=== PATIENT | male | born 1935 | race Caucasian/White ===

== ENCOUNTER 2016-12-15 19:35 | Inpatient (IN) | payer MEDICARE ==
[2016-12-15] VITALS (7 sets, daily range): BP systolic 149–170; BP diastolic 56–83; PULSE 71–99; RESP 18–40; TEMP 96.3–97.5; O2SAT 97–100
[~2016-12-15] VITALS: Ht 177.8 cm; Wt 90.7 kg
[~2016-12-15 19:35] MED LIST: ALLO100T91 PO; AMLO5TAB4 PO; ASPI81TA2 PO; BRI.2% OP; CALC667T5 PO; CARV25TA55 PO; CLOP75TA2 PO; ERGO500043 PO; ETOMIDATE 20 MG/ 10 ML VIAL (AMIDATE) ONE; FOLI-43 PO; INSU100V9 SUBCUT; LIP40 PO; LISI20TA PO; ROCURONIUM BROMIDE 10 MG/ML (ZEMURON) ONE; SEVE800T8 PO; TERA10CA47 PO; VITA1CAP PO; VITA400T9 PO
--- NOTE | 2016-12-15 19:35 | NUR ---
Patient to ER bed 1 to gown for evaluation. Side rails up. Report given to LUTHER PYLE.
--- NOTE | 2016-12-15 19:40 | NUR ---
Pt BIB ALS for acute respiratory distress. Pt on 15L mask, O2 96%, had breathing tx, SOB did not resolve. Pt appeared pale, diaphoretic, accessory muscle noted. Skin intact. 20G IV present at R wrist. Cage Unloader stated BP on the field was 200 systolic.
[2016-12-15] MEDS ORDERED: ETOMIDATE 20 MG/ 10 ML VIAL (AMIDATE) IVP ONE (19:45)
[2016-12-15] MEDS ORDERED: PROPOFOL DRIP 100 ML IV ONE (19:45)
[2016-12-15] MEDS ORDERED: ROCURONIUM BROMIDE 10 MG/ML (ZEMURON) IV ONE (19:45)
--- NOTE | 2016-12-15 19:50 | NUR ---
, , RTs, EMT, Soham RN, Peg RN at bedside for verification using 2 identifiers.
--- NOTE | 2016-12-15 19:58 | NUR ---
Patient not known to be of DNR status. Patient medicated with 20 mg of atomidate and 100mg of rocuronium for sedation prior to placement of ET tube. Respiratory therapy at bedside prior to placement. Size 7.5 ET tube placed by . Cuff inflated with 10 cc air. Auscultation of breath sounds over bilateral chest wall. ET tube secured 23 at the lips. O2 sats 98% pulse ox. PCXR ordered to check tube placement.
[2016-12-15] MEDS ORDERED: FUROSEMIDE 40 MG/4 ML VIAL IVP ONE ×2 (20:00→22:45)
[2016-12-15 20:06] LABS: BASOPHILS % (AUTO) 0.3 % (0.0-2.0); EOSINOPHILS # (AUTO) 0.1 K/uL (0.0-0.4); EOSINOPHILS % (AUTO) 0.5 % (0.0-4.0); HEMATOCRIT 31.3 % (36-54); HEMOGLOBIN 10.1 g/dL (14.0-18.0); LYMPHOCYTES # (AUTO) 1.2 K/uL (1.0-5.5); LYMPHOCYTES % (AUTO) 9.5 % (20.5-51.5); MEAN CORPUSCULAR HEMOGLOBIN 31 pg (27-31); MEAN CORPUSCULAR HGB CONC 32 % (32-36); MEAN CORPUSCULAR VOLUME 94 fL (79.0-98.0); MONOCYTES % (AUTO) 7.6 % (1.7-9.3); NEUTROPHILS # (AUTO) 10.5 K/uL (1.8-7.7); NEUTROPHILS % (AUTO) 82.1 % (40.0-70.0); PLATELET COUNT (AUTO) 159 K/uL (130-430); RED BLOOD CELL COUNT(AUTO) 3.32 MIL/uL (4.2-6.2); RED CELL DISTRIBUTION WIDTH 15.9 % (9.0-15.0); WHITE BLOOD COUNT (AUTO) 12.8 K/uL (4.8-10.8)
[2016-12-15 20:19] LABS: ANION GAP 6 (5-15); CALCIUM 9.6 mg/dL (8.4-11.0); CHLORIDE 98 mmol/L (98-107); GLUCOSE 179 mg/dL (70-99); POTASSIUM 4.6 mmol/L (3.5-5.1); SODIUM SERUM 135 mmol/L (136-145); UREA NITROGEN, BLOOD 58 mg/dL (8-21)
[2016-12-15 20:20] LABS: INR 1.1 (0.80-1.20)
[2016-12-15 20:21] LABS: CREATININE 8.55 mg/dL (0.55-1.30)
[2016-12-15 20:24] LABS: ALANINE AMINOTRANSFERASE 30 U/L (12-78); ALBUMIN 4.1 g/dL (3.4-4.8); ASPARTATE AMINOTRANSFERASE 20 U/L (10-37); TOTAL BILIRUBIN 0.7 mg/dL (0.0-1.0); TOTAL PROTEIN, SERUM 7.7 g/dL (6.4-8.3)
--- NOTE | 2016-12-15 20:32 | NUR ---
Medication reconciliation completed with information provided by [facility]. Any prior medication reconciliation on file was reviewed and corrected.
--- NOTE | 2016-12-15 20:45 | NUR ---
Spoke w/ LASHANDA Pillai from [facility]. Updated her w/ vent settings and current drips
[2016-12-15 20:56] LABS: BLOOD GAS BASE EXCESS 4.1 mmol/L (-3.0-3.0); BLOOD GAS PH 7.525 (7.350-7.450)
[2016-12-15] MEDS ORDERED: cefTRIAXone 1 GM in LIDOCAINE 1%, 20 ML MDV 2.1 ML IM ONE (21:00)
[2016-12-15] MEDS ORDERED: NITROGLYCERIN 1 INCH (GM) OINT. TP ONE (21:00)
[2016-12-15] MEDS ORDERED: hydrALAZINE HCL 20 MG/ML VIAL IVP ONE (21:00)
[2016-12-15] MEDS ORDERED: cefTRIAXone 1 GM IVPB PREMIX 50 ML IV ONE (21:15)
--- NOTE | 2016-12-15 21:36 | NUR ---
Patient will be admitted to care of . Admitted to ICU unit. Will go to room 5. Belongings list completed. Summary report printed. Report given to Ema PYLE. Transfer to ICU 5 via ACLS protocol. 2 Licensed nurse present. IV present no signs or symptoms of infiltration.
--- NOTE | 2016-12-15 21:45 | NUR ---
Pt here from the ED. Received report from LASHANDA Rousseau.
--- NOTE | 2016-12-15 22:00 | NUR ---
Propofol increased to 30mcg/kg/min. Pt was attempting to pull at ETT. bilateral soft wrist restraints in place.
--- NOTE | 2016-12-15 22:00 | NUR ---
Received pt sedated with propofol but able to nod head appropriately when asked questions. Intubated via ETT on AC setting and tolerating well. SR on tele. Afebrile. OGT in place and clamped. Right forearm with 20g, Propofol infusing, patent and intact. Right hand 20g saline lock, flushes well. Snow catheter in place and secured. Bilateral soft wrist restraints on. Discussed restraint use with pt and patient's . Head of bed elevated. Will continue to monitor.
--- NOTE | 2016-12-15 22:40 | NUR ---
Dr. Sanches at bedside discussing plan of care with patient's . Will continue to monitor.
[2016-12-15] MEDS ORDERED: INSULIN REGULAR, HUMAN 100 UNITS/ML, 10 ML VIAL (novoLIN R) SUBCUT PRN ×2 (22:45)
[2016-12-15] MEDS ORDERED: DEXTROSE 50% JECT 50 ML DISP.SYRIN IVP PRN ×2 (22:45)
--- NOTE | 2016-12-15 22:45 | NUR ---
Dr. Tapia at bedside discussing emergency hemodialysis with pt's .
[2016-12-16] VITALS (30 sets, daily range): BP systolic 125–181; BP diastolic 44–73; PULSE 61–81; RESP 14–26; TEMP 97.1–100.8; O2SAT 96–100
[2016-12-16] MEDS ORDERED: AZITHROMYCIN 500 MG in NS 250 ML IV SCH ×2
--- NOTE | 2016-12-16 00:05 | NUR ---
SPOKE WITH ODALIS FOR CONSULTS WITH SHERLYN WOODSON AND SOFIYA.
--- NOTE | 2016-12-16 00:13 | NUR ---
Unable to give azithromycin at this time due to hemodialysis. Will give s/p HD. Will continue to monitor.
--- NOTE | 2016-12-16 00:36 | NUR ---
Spoke with Dr. Perry re: elevated troponin. No orders given at this time.
--- NOTE | 2016-12-16 00:53 | NUR ---
Pt currently receiving hemodialysis. Tolerating well. SR on tele. 100% sat on vent. Head of bed elevated. Will continue to monitor.
[2016-12-16] MEDS ORDERED: PROPOFOL DRIP 100 ML IV ONE (01:30)
--- NOTE | 2016-12-16 01:47 | NUR ---
Propofol decreased to 25mcg/kg/min.
[2016-12-16] MEDS: IPRATROPIUM/ALBUTEROL SULFATE 3 ML AMPUL.NEB INH SCH ×5 (03:21→19:49)
--- NOTE | 2016-12-16 03:45 | NUR ---
Hemodialysis completed. 3L out. Pt tolerated well.
--- NOTE | 2016-12-16 04:00 | NUR ---
SR on tele. Afebrile. Propofol at 25mcg/kg/min. F/C yellow and clear. Oral care completed. Head of bed elevated. Will continue to monitor.
[2016-12-16] MEDS ORDERED: AZITHROMYCIN 500 MG/VIAL (ZITHROMAX) IV ONE (04:15)
[2016-12-16 06:59] LABS: BASOPHILS % (AUTO) 0.2 % (0.0-2.0); EOSINOPHILS % (AUTO) 0.4 % (0.0-4.0); HEMATOCRIT 29.4 % (36-54); HEMOGLOBIN 9.4 g/dL (14.0-18.0); LYMPHOCYTES # (AUTO) 0.7 K/uL (1.0-5.5); MEAN CORPUSCULAR HEMOGLOBIN 30 pg (27-31); MEAN CORPUSCULAR HGB CONC 32 % (32-36); MEAN CORPUSCULAR VOLUME 95 fL (79.0-98.0); MONOCYTES # (AUTO) 0.8 K/uL (0.0-1.0); MONOCYTES % (AUTO) 11.2 % (1.7-9.3); NEUTROPHILS # (AUTO) 5.9 K/uL (1.8-7.7); NEUTROPHILS % (AUTO) 78.2 % (40.0-70.0); PLATELET COUNT (AUTO) 141 K/uL (130-430); RED BLOOD CELL COUNT(AUTO) 3.11 MIL/uL (4.2-6.2); RED CELL DISTRIBUTION WIDTH 16.1 % (9.0-15.0)
[2016-12-16] MEDS: SEVELAMER HCL 800 MG TABLET PO SCH ×4 (06:59→17:27)
[2016-12-16] MEDS: PROPOFOL DRIP 100 ML IV PRN ×3 (07:04→20:06)
[2016-12-16 07:09] LABS: WHITE BLOOD COUNT (AUTO) 7.4 K/uL (4.8-10.8)
--- NOTE | 2016-12-16 07:15 | NUR ---
Pender of care Pt resting in bed. On Diprivan 25mcg/mg. Monster 4. ETT connected to VENT with no SOB. No edema noted. On restraints with no sign of injuries. Will continue to monitor.
[2016-12-16 07:20] LABS: POTASSIUM 3.6 mmol/L (3.5-5.1); SODIUM SERUM 140 mmol/L (136-145)
[2016-12-16] MEDS: hydrALAZINE HCL 20 MG/ML VIAL IVP PRN ×2 (07:20→17:27)
[2016-12-16 07:21] LABS: ANION GAP 9 (5-15); ASPARTATE AMINOTRANSFERASE 19 U/L (10-37); CALCIUM 9.2 mg/dL (8.4-11.0); CHLORIDE 100 mmol/L (98-107); CREATININE 5.82 mg/dL (0.55-1.30); GLUCOSE 134 mg/dL (70-99); TOTAL BILIRUBIN 0.7 mg/dL (0.0-1.0); UREA NITROGEN, BLOOD 35 mg/dL (8-21)
[2016-12-16 07:22] LABS: ALANINE AMINOTRANSFERASE 29 U/L (12-78); ALBUMIN 3.2 g/dL (3.4-4.8); TOTAL PROTEIN, SERUM 6.7 g/dL (6.4-8.3)
[2016-12-16 07:23] LABS: CHOLESTEROL 102 mg/dL (<200); HDL CHOLESTEROL 43 mg/dL (>45); LDL CHOLESTEROL 36 mg/dL (<100); PHOSPHORUS 2.8 mg/dL (2.7-4.5); TRIGLYCERIDES 106 mg/dL (30-150)
[2016-12-16] MEDS: CALCIUM ACETATE 667 MG CAP PO SCH ×3 (08:12→17:27)
[2016-12-16] MEDS: CARVEDILOL 12.5 MG TABLET (COREG) PO SCH ×2 (08:14→21:05)
[2016-12-16] MEDS: BRIMONIDINE TARTRATE 0.2% 5 mL EYE DROPS OP SCH ×2 (08:18→21:06)
--- NOTE | 2016-12-16 08:57 | NUR ---
Nutrition Update Yemi Scale 13 noted. Pt admitted for acute respiratory distress. Diet: none ordered BMI: 28.7 kg/m2 RD to follow per nutrition care standards.
[2016-12-16] MEDS ORDERED: amLODIPine BESYLATE 10 MG TABLET PO SCH (09:00)
[2016-12-16] MEDS ORDERED: ASPIRIN 81 MG TAB.CHEW PO SCH (09:00)
[2016-12-16] MEDS ORDERED: VITAMIN B COMPLEX 1 CAP/TAB PO SCH (09:00)
[2016-12-16] MEDS ORDERED: LISINOPRIL 20 MG TABLET PO SCH (09:00)
[2016-12-16] MEDS ORDERED: FOLIC ACID 1 MG TABLET PO SCH (09:00)
[2016-12-16] MEDS ORDERED: CLOPIDOGREL BISULFATE 75 MG TABLET PO SCH (09:00)
[2016-12-16] MEDS ORDERED: LORazepam 2 MG/ML VIAL IVP PRN (09:45)
[2016-12-16 09:57] LABS: ABG TOTAL HEMOGLOBIN 9.8 G/dL (12.0-18.0); BLOOD GAS BASE EXCESS 4.3 mmol/L (-3.0-3.0); BLOOD GAS COHb% 0.2 % (0.5-1.5); BLOOD GAS HHB 2.8 % (0.0-6.0); BLOOD GAS PH 7.617 (7.350-7.450)
[2016-12-16 09:58] LABS: BLOOD O2Hb% 96.5 % (94.0-97.0)
--- NOTE | 2016-12-16 10:40 | NUR ---
1010 PLACED PT ON SIMV10 PS [address] +[address] NATHAN HAYS. IF PT TOLERATES WELL POST 1 HOUR, WILL PLACE PT ON CPAP AND DO ABG POST 1HOUR. RN AWARE. Addendum: 12/16/16 at 1043 by Ella Latham RT Amended: Links added.
--- NOTE | 2016-12-16 12:00 | NUR ---
Nursing Update pt's on CPAP, tolerating well. No SOB. at bedside and informed re: plan of care. Current temp 100.8. Cooling measures provided. Oliguric. In no acute distress. Will continue to monitor.
--- NOTE | 2016-12-16 13:52 | NUR ---
DC PLANNING Received order stable to transfer to contracted hospital. Called & spoke jas Chang CM @ [facility], ph [phone], & informed, aware need CCT. States aware family request [facility] but no beds, she has called family, is looking for bed availability @ other [facility]. Informed MANUEL leaving for the day, states she will call pt's nurse, that she has already spoken w her earlier today. Called & updated pt's nurseMiranda. Addendum: 12/16/16 at 1414 by Marlee Liang DP Ordered Radiology CD. Placed transportation packet in nurses station for [facility].
[2016-12-16 14:17] LABS: BLOOD GAS PH 7.499 (7.350-7.450)
[2016-12-16 14:18] LABS: ABG TOTAL HEMOGLOBIN 9.6 G/dL (12.0-18.0); BLOOD GAS BASE EXCESS 5.4 mmol/L (-3.0-3.0); BLOOD GAS HHB 2.6 % (0.0-6.0); BLOOD O2Hb% 96.7 % (94.0-97.0)
[2016-12-16] MEDS ORDERED: VANCOMYCIN HCL 1,500 MG in NS 250 ML IV SCH (15:00)
[2016-12-16] MEDS ORDERED: ATORVASTATIN 20 MG TABLET PO SCH (18:00)
--- NOTE | 2016-12-16 18:00 | NUR ---
Nursing Dr. Galvez called here and made aware re: the latest ABG result. No new order. Pt still on Propofol 25mcg/kg/min. Hook 4. Pt able to answer questions by nodding head. Propofol was not adjusted throughout shift. Oral care given q4 as ordered. Restraints in place without injuries noted. Family was @ bedside and was educated re: plan of care and latest update re: transfer to [facility]. As of now, still waiting for bed. Blood pressure monitored throughout shift. No acute distress.
--- NOTE | 2016-12-16 18:40 | NUR ---
Transfer to [facility] Spoke with Arleen, casework specialist from [facility] who said there is bed available in [facility].She arrange transportation for [employer] @ [address] [facility] with [facility] certified RN. Perla Cowart will be the admitting MD. [id number]. Phone number to give report: [phone]. Arleen's phone number or Charlene : [phone]. at [facility] and made aware. agreed. Spoke with LASHANDA Mejia and gave report. In no acute distress at this time.
--- NOTE | 2016-12-16 18:50 | NUR ---
Transfer Update [facility] case management, called here and said that pt's time of shredder picker will be 20:30. Charge nurse LASHANDA Echeverria and made aware.
--- NOTE | 2016-12-16 19:30 | NUR ---
Report given to LASHANDA Newton and endorsed all care. Pt on propofol 25mcg/kg/min. In no acute distress.
--- NOTE | 2016-12-16 19:30 | NUR ---
PM SHIFT ASSESSMENT, PT AWAKE AND ALERT. RESPONDS APPROPRIATELY BY NODDING HEAD. ON THE VENT ,CPAP 5, PS 10, FIO2 40%..NO RESP DISTRESS NOTED. OGT CLAMPED. RESTRAINTS REMOVED PT IS ALERT AND ORIENTED. AT BED SIDE. RON CALLED TO CHECK ON PTS VSS. REPORTED VSS. AWAITING FOR [facility] TO ARRIVE ANY TIME.
[2016-12-16] MEDS ORDERED: cefTRIAXone 1 GM in D5W 50 ML IV SCH (21:00)
[2016-12-16] MEDS ORDERED: ENOXAPARIN SODIUM 30 MG/0.3 ML SYRINGE SUBCUT SCH (21:00)
--- NOTE | 2016-12-16 21:00 | NUR ---
PT TRANSFERRED TO [facility] , ACCOMPANIED BY [facility] , NOT IN ANY DISTRESS. VSS. ALSO FOLLOWED PT TO [place].
--- NOTE | 2016-12-16 21:00 | NUR ---
PM MEDS. ALL MEDS GIVEN .[facility] HERE TO CLEANER ASSISTANT PT. 2100 IVPB NOT GIVEN [facility] RN DOESNOT WANT IT GO WITH PT ON TRANSPORT.REPORT GIVEN TO [facility] RN. ACCU CHECK 127. NO COVERAGE NEEDED.
== END 2016-12-16 23:31 | disposition short-term general hospital (02) | DRG 208 ==
LOC: SED 19:35 → STU 21:21 → SIC 21:31
PROVIDERS: ADMIT Internal Medicine; ATTEND Internal Medicine
PROC: 5A1935Z Respiratory Ventilation, Less than 24 Consecutive Hours (ICD-10-PCS; principal; 2016-12-15)
PROC: 0BH17EZ Insertion of Endotracheal Airway into Trachea, Via Natural or Artificial Opening (ICD-10-PCS; 2016-12-15)
PROC: 5A1D00Z (ICD-10-PCS; 2016-12-15)
DX: J96.01 Acute respiratory failure with hypoxia (principal); I50.31 Acute diastolic (congestive) heart failure; N18.6 End stage renal disease; J18.9 Pneumonia, unspecified organism; J44.0 Chronic obstructive pulmonary disease with (acute) lower respiratory infection; I13.2 Hypertensive heart and chronic kidney disease with heart failure and with stage 5 chronic kidney disease, or end stage renal disease; D63.8 Anemia in other chronic diseases classified elsewhere; E11.22 Type 2 diabetes mellitus with diabetic chronic kidney disease; E66.9 Obesity, unspecified; I25.10 Atherosclerotic heart disease of native coronary artery without angina pectoris; E87.70 Fluid overload, unspecified; E78.5 Hyperlipidemia, unspecified; H40.9 Unspecified glaucoma; M10.9 Gout, unspecified; E11.51 Type 2 diabetes mellitus with diabetic peripheral angiopathy without gangrene; Z99.2 Dependence on renal dialysis; Z87.891 Personal history of nicotine dependence; Z95.5 Presence of coronary angioplasty implant and graft; Z88.6 Allergy status to analgesic agent; Z68.28 Body mass index [BMI] 28.0-28.9, adult
CPT/HCPCS: 36415; 36600; 71010; 80053; 80061; 82803-TC; 82962; 83605; 83880; 84100-TC; 84484; 85025; 85610-TC; 85730-TC; 87040-TC; 87070-TC; 87081; 87205-TC; 90935; 93005; 94002; 94003; 94640; 96374; 96375; 99291; J0360; J0456; J0696; J1650; J1815; J1940; J2704; J3370; J3490; J7030; J7050; J7060